=== PATIENT | male | born 1975 | race American Indian/Alaskan Native ===

== ENCOUNTER 2017-06-18 18:32 | Emergency (ER) | payer OTHER ==
[2017-06-18 19:00] VITALS: BP 140/88
[2017-06-18] MEDS ORDERED: Insulin Regular, Human 100 Units/ML 3 ML Vial SUBCUT ONE (19:03)
--- NOTE | 2017-06-18 19:06 | EDM.PDOC ---
ED HPI GENERAL MEDICAL PROBLEM - General Chief Complaint: General Stated Complaint: HIGH BS [id number] Time Seen by Provider: 06/18/17 19:03 Source of Information: Reports: Patient History Limitations: Reports: No Limitations - History of Present Illness INITIAL COMMENTS - FREE TEXT/NARRATIVE: was told @ fitness center BS 604 but BS here is 384. no c/o feels fine. hadn't taken tonight's dose metformin since is here. - Related Data Allergies Allergy/AdvReac Type Severity Reaction Status Date / Time Penicillins Allergy Hives Verified 09/27/15 05:11 Home Meds: Home Meds Aspirin [Leelee Chewable] 81 mg PO DAILY 06/28/14 [History] Calcium Carbonate [Calcium] 500 mg PO DAILY 06/28/14 [History] Lisinopril 10 mg PO DAILY 06/28/14 [History] [place]aho-3 Fatty Acids [Fish Oil] 500 mg PO DAILY 06/28/14 [History] atorvaSTATin Calcium [Atorvastatin Calcium] 10 mg PO DAILY 06/28/14 [History] glipiZIDE [Glipizide ER] 10 mg PO BID 06/28/14 [History] metFORMIN [Glucophage] 1,000 mg PO BIDM 06/28/14 [History] Past Medical History Other HEENT History: Stated wearing corrective lenses Cardiovascular History: Reports: High Cholesterol, Hypertension Other Musculoskeletal History: Left thumb cut-off Endocrine/Metabolic History: Reports: Diabetes, Type II - Past Surgical History Other GI Surgeries/Procedures: Patient denies GERD even it was stated before that he had GERD. Other Musculoskeletal Surgeries/Procedures:: Retouch left thumb. Social & Family History - Tobacco Use Smoking Status *Q: Never Smoker Years of Tobacco use: 18 Packs/Tins Daily: 1 Used Tobacco, but Quit: Yes Month Tobacco Last Used: 06/2012 Second Hand Smoke Exposure: No - Caffeine Use Caffeine Use: Reports: Coffee, Soda, Tea - Alcohol Use Days Per Week of Alcohol Use: 0 Number of Drinks Per Day: 0 Total Drinks Per Week: 0 - Recreational Drug Use Recreational Drug Use: Yes ED ROS GENERAL - Review of Systems Review Of Systems: ROS reveals no pertinent complaints other than HPI. ED EXAM, GENERAL - Physical Exam Exam: See Below Exam Limited By: No Limitations General Appearance: Alert, WD/WN, No Apparent Distress Ears: Hearing Grossly Normal Throat/Mouth: Normal Voice, No Airway Compromise Head: Atraumatic Neck: Non-Tender, Full Range of Motion Respiratory/Chest: No Respiratory Distress Cardiovascular: Regular Rate, Rhythm GI/Abdominal: Soft, Non-Tender Neurological: Alert, Oriented, Normal Cognition, Normal Gait, No Motor/Sensory Deficits Psychiatric: Normal Affect, Normal Mood Skin Exam: Warm, Dry, Normal Color Lymphatic: No Adenopathy Course - Vital Signs Last Recorded V/S: Last Vital Signs Temp 35.9 C 06/18/17 18:59 Pulse 95 06/18/17 18:59 Resp 20 06/18/17 18:59 BP 140/88 06/18/17 18:59 Pulse Ox 99 06/18/17 18:59 - Orders/Labs/Meds Labs: Laboratory Tests 06/18/17 Range/Units 18:53 POC Glucose 381 H (70-105) mg/dl Meds: Medications Discontinued Medications Generic Name Dose Route Start Last Admin Trade Name Camronq PRN Reason Stop Dose Admin Insulin Human Regular 10 unit 06/18/17 19:03 06/18/17 19:06 Humulin R SUBCUT 06/18/17 19:04 10 units ONETIME ONE Administration Protocol Departure - Departure Time of Disposition: 19:17 Disposition: Home, Self-Care 01 Condition: Good Clinical Impression: Hyperglycemia - Discharge Information Instructions: Hyperglycemia, [id number] Forms: ED Department Discharge Additional Instructions: 1) continue home meds 2) follow up at clinic for possible med dose re-adjustment 3) recheck as needed
== END 2017-06-18 19:17 | disposition home or self-care (01) ==
LOC: DL.ED 18:32
DX: E11.65 Type 2 diabetes mellitus with hyperglycemia (principal); I10 Essential (primary) hypertension; E78.00 Pure hypercholesterolemia, unspecified; Z79.82 Long term (current) use of aspirin; Z79.84 Long term (current) use of oral hypoglycemic drugs; Z79.899 Other long term (current) drug therapy; Z88.0 Allergy status to penicillin
CPT/HCPCS: 82962; 96372; 99284

== ENCOUNTER 2018-01-12 18:40 | Emergency (ER) | payer OTHER ==
[2018-01-12 18:47] VITALS: BP 134/85
--- NOTE | 2018-01-12 22:01 | EDM.PDOC ---
ED HPI GENERAL MEDICAL PROBLEM - General Chief Complaint: Respiratory Problem Stated Complaint: cold [id number] Time Seen by Provider: 01/12/18 21:56 Source of Information: Reports: Patient History Limitations: Reports: No Limitations - History of Present Illness INITIAL COMMENTS - FREE TEXT/NARRATIVE: Cold and cough for one week. right ear started hurting today. Coughing up yellow/green phlegm. States seemed like cold and cough better for couple of days but now worse. non smoker Right Ear Pain Score (Numeric/FACES): 3 - Related Data Allergies Allergy/AdvReac Type Severity Reaction Status Date / Time Penicillins Allergy Hives Verified 01/12/18 18:47 Home Meds: Home Meds Aspirin [Leelee Chewable] 81 mg PO DAILY 06/28/14 [History] Lisinopril 10 mg PO DAILY 06/28/14 [History] atorvaSTATin Calcium [Atorvastatin Calcium] 10 mg PO DAILY 06/28/14 [History] glipiZIDE [Glipizide ER] 10 mg PO BID 06/28/14 [History] metFORMIN [Glucophage] 1,000 mg PO BIDM 06/28/14 [History] Past Medical History Other HEENT History: Stated wearing corrective lenses Cardiovascular History: Reports: High Cholesterol, Hypertension Other Musculoskeletal History: Left thumb cut-off Endocrine/Metabolic History: Reports: Diabetes, Type II - Past Surgical History Other GI Surgeries/Procedures: Patient denies GERD even it was stated before that he had GERD. Other Musculoskeletal Surgeries/Procedures:: Retouch left thumb. Social & Family History - Tobacco Use Smoking Status *Q: Never Smoker Years of Tobacco use: 18 Packs/Tins Daily: 1 Used Tobacco, but Quit: Yes Month Tobacco Last Used: 06/2012 Second Hand Smoke Exposure: No - Caffeine Use Caffeine Use: Reports: Coffee, Soda, Tea - Alcohol Use Days Per Week of Alcohol Use: 0 Number of Drinks Per Day: 0 Total Drinks Per Week: 0 - Recreational Drug Use Recreational Drug Use: No ED ROS GENERAL - Review of Systems Review Of Systems: See Below Constitutional: Reports: Fever HEENT: Reports: Ear Pain, Throat Pain Respiratory: Reports: Cough Musculoskeletal: Reports: No Symptoms Skin: Reports: No Symptoms ED EXAM, GENERAL - Physical Exam Exam: See Below Exam Limited By: No Limitations General Appearance: Alert, Mild Distress Eye Exam: Bilateral Eye: EOMI, PERRL Ears: Normal External Exam. No: Normal TMs Ear Exam: Right Ear: TM Red, Left Ear: TM Dull Nose: Nasal Deformity Throat/Mouth: Normal Inspection Head: Atraumatic, Normocephalic Neck: Normal Inspection Respiratory/Chest: No Respiratory Distress, Wheezing (right mid to base coarse) Cardiovascular: Normal Peripheral Pulses, Regular Rate, Rhythm GI/Abdominal: Normal Bowel Sounds Neurological: Alert, Oriented, Normal Cognition Psychiatric: Normal Affect Skin Exam: Warm, Dry, Intact, Normal Color Course - Vital Signs Last Recorded V/S: Last Vital Signs Temp 96.6 F 01/12/18 18:43 Pulse 110 H 01/12/18 18:43 Resp 18 01/12/18 18:43 BP 134/85 01/12/18 18:43 Pulse Ox 97 01/12/18 18:43 Departure - Departure Time of Disposition: 22:02 Disposition: Home, Self-Care 01 Condition: Good Clinical Impression: Bronchitis Otitis Qualifiers: Laterality: right Qualified Code(s): H66.91 - Otitis media, unspecified, right ear - Discharge Information Instructions: Upper Respiratory Infection, Adult, [id number], Otitis Media, Adult Additional Instructions: Azithromycin 250mg one daily x 4 days tylenol or ibuprofen for fever or discomfort increase fluids humidification follow up if symptoms worsen
[2018-01-12] MEDS ORDERED: Azithromycin 250 MG Tab PO ONE (22:04)
== END 2018-01-12 22:11 | disposition home or self-care (01) ==
LOC: DL.ED 18:40
DX: J40 Bronchitis, not specified as acute or chronic (principal); H66.91 Otitis media, unspecified, right ear; I10 Essential (primary) hypertension; E78.00 Pure hypercholesterolemia, unspecified; E11.9 Type 2 diabetes mellitus without complications; Z87.891 Personal history of nicotine dependence; Z79.82 Long term (current) use of aspirin; Z79.84 Long term (current) use of oral hypoglycemic drugs; Z88.0 Allergy status to penicillin
CPT/HCPCS: 99283; A9270

== ENCOUNTER 2018-06-15 16:17 | Inpatient (IN) | payer OTHER ==
[2018-06-15] MEDS ORDERED: Sodium Chloride 0.9% 1,000 ML IV ONE (18:06)
[2018-06-15] MEDS ORDERED: diphenhydrAMINE 50 MG/ML SDV IVPUSH ONE (18:06)
[2018-06-15] MEDS ORDERED: Vancomycin 1.5 GM in Sodium Chloride 0.9% 500 ML IV ONE (18:06)
[2018-06-15] MEDS: Sodium Chloride 0.9% 10 ML Syringe FLUSH PRN (18:07)
[2018-06-15 18:32] LABS: ANION GAP 12.7; CHLORIDE,CL 97 mmol/L (101-111); SODIUM,NA 131 mmol/L (135-145)
[2018-06-15] MEDS ORDERED: Acetaminophen 325 MG Tab PO ONE (18:53)
[2018-06-15] MEDS ORDERED: Insulin Regular, Human 100 Units/ML 3 ML Vial SUBCUT ONE (18:53)
--- NOTE | 2018-06-15 19:09 | EDM.PDOC ---
Scribed by Mandy Alford 06/15/[id number] for Bebo Reed MD ED HPI GENERAL MEDICAL PROBLEM - General Chief Complaint: Wound Recheck Stated Complaint: FOOT PAIN [id number] Time Seen by Provider: 06/15/18 17:50 Source of Information: Reports: Patient, RN, RN Notes Reviewed History Limitations: Reports: No Limitations - History of Present Illness INITIAL COMMENTS - FREE TEXT/NARRATIVE: Patient presents to ER with complaint of painful red left 2nd toe. Yesterday was working for the [employer] and thinks his toe was rubbing in his boot. Because he has diabetes with peripheral neuropathy he did not feel it and developed an open sore. Today when he awoke he noticed that the toe was painful because he doesn't usually feel the pain. Over the past several hours the pain has spread and developed redness to the distal lower leg. He complains of fever and chills. Also feels his heart rate is fast. Onset Date: 06/14/18 Duration: Getting Worse Location: Reports: Lower Extremity, Left Quality: Reports: Ache Severity: Severe Improves with: Reports: None Worsens with: Reports: None Associated Symptoms: Reports: No Other Symptoms Left 2-Long toe Pain Score (Numeric/FACES): 6 - Related Data Allergies Allergy/AdvReac Type Severity Reaction Status Date / Time Penicillins Allergy Hives Verified 06/15/18 17:53 Home Meds: Home Meds Aspirin [Leelee Chewable] 81 mg PO DAILY 06/28/14 [History] Lisinopril 10 mg PO DAILY 06/28/14 [History] atorvaSTATin Calcium [Atorvastatin Calcium] 10 mg PO DAILY 06/28/14 [History] glipiZIDE [Glipizide ER] 10 mg PO BID 06/28/14 [History] metFORMIN [Glucophage] 1,000 mg PO BIDM 06/28/14 [History] Past Medical History Other HEENT History: Stated wearing corrective lenses Cardiovascular History: Reports: High Cholesterol, Hypertension Other Musculoskeletal History: Left thumb cut-off Endocrine/Metabolic History: Reports: Diabetes, Type II - Past Surgical History Other GI Surgeries/Procedures: Patient denies GERD even it was stated before that he had GERD. Other Musculoskeletal Surgeries/Procedures:: Retouch left thumb. Social & Family History - Family History Family Medical History: Noncontributory - Tobacco Use Smoking Status *Q: Current Every Day Smoker Tobacco Use Within Last Twelve Months: Cigarettes Years of Tobacco use: 5 Packs/Tins Daily: 0.1 Second Hand Smoke Exposure: Yes - Caffeine Use Caffeine Use: Reports: Coffee, Soda, Tea - Recreational Drug Use Recreational Drug Use: No ED ROS GENERAL - Review of Systems Review Of Systems: ROS reveals no pertinent complaints other than HPI. ED EXAM, SKIN/RASH Exam: See Below Exam Limited By: No Limitations General Appearance: Alert, No Apparent Distress, Other (uncomfortable but nontoxic appearing. ) Eye Exam: Bilateral Eye: Normal Inspection Throat/Mouth: Normal Lips, Normal Voice, No Airway Compromise, Other (dry oral membranes) Head: Atraumatic, Normocephalic Neck: Normal Inspection, Supple, Non-Tender, Full Range of Motion Respiratory/Chest: No Respiratory Distress, Lungs Clear, Normal Breath Sounds, No Accessory Muscle Use, Chest Non-Tender Cardiovascular: Normal Peripheral Pulses, Regular Rate, Rhythm, Tachycardia Back Exam: Normal Inspection Extremities: Normal Range of Motion, No Pedal Edema, Normal Capillary Refill, Increased Warmth (left 2nd toe dorsum of the left foot to the distal lower leg with erythema and tenderness, dorsum of the left 2nd toe has a 0.5cm unstageable pressure or friction ulcer with no signfiicant drainage or discharge. ) Neurological: Alert, Oriented, CN II-XII Intact, Normal Cognition, No Motor/ Sensory Deficits Psychiatric: Normal Affect, Normal Mood Course - Vital Signs Last Recorded V/S: Last Vital Signs Temp 37.9 C 06/15/18 17:49 Pulse 123 H 06/15/18 17:49 Resp 18 06/15/18 17:49 BP 154/112 H 06/15/18 17:49 Pulse Ox 100 06/15/18 17:49 - Orders/Labs/Meds Orders: Active Orders 24 hr Category Date Time Status Peripheral IV Care [RC] . DIRECTED Care 06/15/18 17:58 Active Toes Second Digit Lt T1 [CR] Urgent Exams 06/15/18 18:54 Taken CULTURE BLOOD [BC] Stat Lab 06/15/18 18:05 Received CULTURE BLOOD [BC] Stat Lab 06/15/18 18:15 Received KETONES,BLOOD [CHEM] Stat Lab 06/15/18 19:00 Ordered Sodium Chloride 0.9% [Saline Flush] Med 06/15/18 17:58 Active 10 ml FLUSH ASDIRECTED PRN Vancomycin 1.5 gm Med 06/15/18 18:06 Active Sodium Chloride 0.9% [Normal Saline] 500 ml IV ONETIME Blood Culture x2 Reflex Set [OM.PC] Stat Oth 06/15/18 17:58 Ordered Peripheral IV Insertion Adult [OM.PC] Routine Oth 06/15/18 17:58 Ordered Medication Orders Vancomycin HCl 1.5 gm/ Sodium (Chloride) 500 mls @ 334 mls/hr IV ONETIME ONE Stop: 06/15/18 19:35 Last Admin: 06/15/18 18:23 Dose: 334 mls/hr Sodium Chloride (Saline Flush) 10 ml FLUSH ASDIRECTED PRN PRN Reason: Keep Vein Open Last Admin: 06/15/18 18:07 Dose: 10 ml Labs: Laboratory Tests 06/15/18 06/15/18 06/15/18 Range/Units 18:05 18:05 18:05 WBC 13.6 H (5.0-10.0) 10^3/uL RBC 5.23 (4.6-6.2) 10^6/uL Hgb 15.1 D (14.0-18.0) g/dL Hct 43.6 (40.0-54.0) % MCV 83.4 D (80-100) fL MCH 28.9 (27.0-34.0) pg MCHC 34.6 (33.0-35.0) g/dL Plt Count 199 (150-450) 10^3/uL Neut % (Auto) 86.2 H (42.2-75.2) % Lymph % (Auto) 6.9 L (20.5-50.1) % [place] % (Auto) 6.4 (2-8) % Eos % (Auto) 0.4 L (1.0-3.0) % Baso % (Auto) 0.1 (0.0-1.0) % Sodium 131 L (135-145) mmol/L Potassium 3.7 (3.6-5.0) mmol/L Chloride 97 L (101-111) mmol/L Carbon Dioxide 25.0 (21.0-31.0) mmol/L Anion Gap 12.7 BUN 8 (7-18) mg/dL Creatinine 0.7 (0.6-1.3) mg/dL Est Cr Clr Drug Dosing 150.89 mL/min Estimated GFR (MDRD) > 60 BUN/Creatinine Ratio 11.42 Glucose 490 H* (74-105) mg/dL Lactic Acid 2.7 H (0.5-2.2) mmol/L Calcium 9.0 (8.4-10.2) mg/dl Total Bilirubin 0.8 (0.2-1.0) mg/dL AST 24 (10-42) IU/L ALT 16 (10-60) IU/L Alkaline Phosphatase 96 (42-121) IU/L Total Protein 6.9 (6.7-8.2) g/dl Albumin 3.9 (3.2-5.5) g/dl Globulin 3.0 Albumin/Globulin Ratio 1.30 Meds: Medications Generic Name Dose Route Start Last Admin Trade Name Freq PRN Reason Stop Dose Admin Vancomycin HCl 1.5 gm/ Sodium 500 mls @ 334 mls/hr 06/15/18 18:06 06/15/18 18 :23 Chloride IV 06/15/18 19:35 334 mls/hr ONETIME ONE Administration Sodium Chloride 10 ml 06/15/18 17:58 06/15/18 18:07 Saline Flush FLUSH 10 ml ASDIRECTED PRN Administration Keep Vein Open Discontinued Medications Generic Name Dose Route Start Last Admin Trade Name Freq PRN Reason Stop Dose Admin Acetaminophen 650 mg 06/15/18 18:53 06/15/18 19:01 Tylenol PO 06/15/18 18:54 650 mg NOW ONE Administration Diphenhydramine HCl 25 mg 06/15/18 18:06 06/15/18 18:15 Benadryl IVPUSH 06/15/18 18:07 25 mg ONETIME ONE Administration Sodium Chloride 1,000 mls @ 999 mls/hr 06/15/18 18:06 06/15/18 18:15 Normal Saline IV 06/15/18 19:06 999 mls/hr .BOLUS ONE Administration Insulin Human Regular 10 unit 06/15/18 18:53 06/15/18 19:02 Humulin R SUBCUT 06/15/18 18:54 10 unit ONETIME ONE Administration Departure - Departure Time of Disposition: 19:03 ((Ad[address] Mcdowell)) Disposition: Admitted As Inpatient 66 Condition: Serious Clinical Impression: Cellulitis of left foot, Noncompliance with medications Hyperglycemia due to type 2 diabetes mellitus Qualifiers: Diabetes mellitus long-term insulin use: without long-term use Qualified Code(s ): E11.65 - Type 2 diabetes mellitus with hyperglycemia - Discharge Information Forms: ED Department Discharge - My Orders Last 24 Hours: My Active Orders 06/15/18 17:58 Peripheral IV Care [RC] . DIRECTED Sodium Chloride 0.9% [Saline Flush] 10 ml FLUSH ASDIRECTED PRN Blood Culture x2 Reflex Set [OM.PC] Stat Peripheral IV Insertion Adult [OM.PC] Routine 06/15/18 18:05 CULTURE BLOOD [BC] Stat 06/15/18 18:06 Vancomycin 1.5 gm Sodium Chloride 0.9% [Normal Saline] 500 ml IV ONETIME 06/15/18 18:15 CULTURE BLOOD [BC] Stat 06/15/18 18:54 Toes Second Digit Lt T1 [CR] Urgent 06/15/18 19:00 KETONES,BLOOD [CHEM] Stat - Assessment/Plan Last 24 Hours: My Active Orders 06/15/18 17:58 Peripheral IV Care [RC] . DIRECTED Sodium Chloride 0.9% [Saline Flush] 10 ml FLUSH ASDIRECTED PRN Blood Culture x2 Reflex Set [OM.PC] Stat Peripheral IV Insertion Adult [OM.PC] Routine 06/15/18 18:05 CULTURE BLOOD [BC] Stat 06/15/18 18:06 Vancomycin 1.5 gm Sodium Chloride 0.9% [Normal Saline] 500 ml IV ONETIME 06/15/18 18:15 CULTURE BLOOD [BC] Stat 06/15/18 18:54 Toes Second Digit Lt T1 [CR] Urgent 06/15/18 19:00 KETONES,BLOOD [CHEM] Stat I have read and agree with the documentation that has been completed regarding this visit. By signing this record, I attest that the documentation was completed in my physical presence and is an accurate record of the encounter.
[2018-06-15] MEDS ORDERED: Magnesium Hydroxide 400 MG/5 ML Susp 30 ML Cup PO PRN (20:34)
[2018-06-15] MEDS ORDERED: Acetaminophen 325 MG Tab PO PRN (20:34)
[2018-06-15] MEDS ORDERED: Morphine 2 MG/ML Syringe IVPUSH PRN (20:34)
[2018-06-15] MEDS ORDERED: Ondansetron 4 MG Tab.DIS PO PRN (20:34)
[2018-06-15] MEDS ORDERED: Temazepam 15 MG Cap PO PRN (20:34)
[2018-06-15] MEDS ORDERED: Docusate Sodium 100 MG Cap PO PRN (20:34)
[2018-06-15] MEDS ORDERED: 50% Dextrose in Water 50 ML Syringe IVPUSH PRN (20:38)
[2018-06-15] MEDS ORDERED: Sodium Chloride 0.9% 1,000 ML IV SCH (20:45)
[2018-06-15] MEDS ORDERED: Insulin Aspart 100 Units/ML 3 ML Pen SUBCUT SCH (21:00)
[2018-06-15] MEDS: glipiZIDE 5 MG Tab.ER PO SCH (21:38)
[2018-06-15] MEDS: Acetaminophen/oxyCODONE 325-5 MG Tab PO PRN (21:39)
[2018-06-15] MEDS: Meropenem 1 GM in Sodium Chloride 0.9% 100 ML IV SCH (21:57)
--- NOTE | 2018-06-16 02:09 | HP ---
CHIEF COMPLAINT: Increased swelling, pain, and redness to the left foot. HISTORY OF PRESENTING ILLNESS: Mr. Sukhdeep Frey is a 42-year-old male with medical history significant for hypertension, hyperlipidemia, type 2 diabetes mellitus, presented to the ER with complaints of having pain and swelling to the left foot. He first noticed it yesterday and since been very painful. He grades the pain as 5-6/10 in intensity, which gets aggravated on ambulation and relieved partially with pain medication, nonradiating type of pain, not associated with any nausea or vomiting. Denies any chest pain. No shortness of breath associated with the fever. He had a temperature after coming to the emergency room. Denied any history of similar complaints in the past. He works in maintenance for roads and unsure if he has boot scrub against his foot leading to this small ulcer, leading to cellulitis. The patient denied any history of similar complaints in the past. The patient denied any history of chest pains on exertion. No history of dyspnea on exertion. No history of orthopnea or paroxysmal nocturnal dyspnea. The patient denied any history of hematemesis, hematochezia, or melenic stools. Normal bowel and bladder habits otherwise. REVIEW OF SYSTEMS: A complete review of systems including skin, ear, nose, and throat, cardiovascular system, respiratory system, gastrointestinal system, genitourinary system, hematology, oncology, neurology, allergy, immunology, constitutional were all evaluated and were negative except for the above-said notes. PAST MEDICAL HISTORY: Significant for hypertension; hyperlipidemia; type 2 diabetes mellitus; history of liver disease, fatty liver disease, nonalcoholic; sinusitis; pharyngitis. PAST SURGICAL HISTORY: Significant for foot, toe bunionectomy on the left side and closed liver biopsy. FAMILY HISTORY: Significant for diabetes and heart disease in his father. ALLERGIES: Significant for penicillin and the patient does not know the exact reaction he has with penicillin. HOME MEDICATIONS: Include: 1. Lipitor 10 mg daily. 2. Lisinopril 10 mg daily. 3. Aspirin 81 mg daily. 4. Metformin 1000 mg twice a day. 5. Glipizide 10 mg twice a day. SOCIAL HISTORY: The patient has occasional alcohol intake and occasional tobacco smoking. PHYSICAL EXAMINATION: Vital Signs: Temperature of 100.2, pulse of 123, blood pressure of 154/112, respiratory rate of 18, saturating 100%. General Appearance: The patient is well oriented to time, place, and person. Follows commands spontaneously. Cardiovascular System: S1 and S2 heard with normal intensity. No gallops. Respiratory System: Clear to auscultation bilaterally. No wheeze. No crepitations. Abdomen: Soft. Bowel sounds positive. Nontender. No rigidity. Extremities: No edema to bilateral lower extremities. The patient is noted to have a small wound on the 2nd toe on the left foot. There is some erythema, swelling, and streaks of erythema noted on the left foot on the dorsal aspect. No active secretions noted. Tender to palpation. Peripheral pulses felt well. Neurology: No gross focal neurological deficits. LABORATORY DATA: Labs reviewed. WBC 13.6, hemoglobin 15.1, hematocrit 43.6, and platelet count 199. Sodium 131, potassium 3.7, chloride 97, bicarb 25, BUN 8, creatinine 0.7, glucose 490, lactic acid 2.7, total bilirubin 0.8, AST 24, and ALT 16. ASSESSMENT: 1. Cellulitis. 2. Possible sepsis. 3. Type 2 diabetes mellitus, uncontrolled. 4. Lactic acidosis. 5. Hypertension. 6. Hyperlipidemia. 7. History of alcohol intake and tobacco use. PLAN: 1. Cellulitis. The patient noted to have cellulitis involving the left foot and a small wound noted on the left 2nd toe. Given his diabetes, one has to be very careful. We will start him on IV antibiotics. The patient has allergy to penicillin, so we will put him on meropenem. We will keep him hydrated with IV fluids. We will follow the blood cultures. 2. Sepsis. The patient is noted to have tachycardia at the time of admission with heart rate of 123 and also noted to have a temperature of 100.2 with leukocytosis suggestive of possible sepsis. Elevated lactic acid level. We will follow serial lactic acids. We will keep him hydrated with IV fluids. Start him on IV antibiotics. Titrate the antibiotics once we have the culture reports available. 3. Type 2 diabetes mellitus, uncontrolled. The patient noted to have elevated blood sugars. The patient claims that he has not taken his pills for the last 1 week. He ran out of pills. The patient was educated about the importance of being compliance with medications. We will have him on insulin regimen. We will resume his glipizide and hold the metformin for now. Check his fingersticks with each meals. 4. Hyponatremia, mild in nature. Sodium of 131, could be pseudohyponatremia from hyperglycemia. Keep him hydrated with normal saline. Recheck a BMP in a.m. 5. DVT prophylaxis. We will have him on Lovenox for DVT prophylaxis. 6. Hypertension. The patient noted to be on lisinopril. Continue the same. 7. Code status. The patient wants to be full code. 8. Discussed with Dr. Reed, ER physician, regarding the plan of care. Reviewed the labs and medications. Reviewed the old charts. [facility] /[id number]
[2018-06-16] MEDS: Acetaminophen/oxyCODONE 325-5 MG Tab PO PRN ×5 (02:37→23:04)
[2018-06-16 05:10] LABS: ANION GAP 10.4; CHLORIDE,CL 103 mmol/L (101-111); SODIUM,NA 137 mmol/L (135-145)
[2018-06-16] MEDS: Meropenem 1 GM in Sodium Chloride 0.9% 100 ML IV SCH ×3 (05:50→22:19)
[2018-06-16] MEDS: atorvaSTATin 10 MG Tab PO SCH (08:30)
[2018-06-16] MEDS: Lisinopril 10 MG Tab PO SCH (08:30)
[2018-06-16] MEDS: Aspirin 81 MG Tab.Chew PO SCH (08:30)
[2018-06-16] MEDS: Insulin Aspart 100 Units/ML 3 ML Pen SUBCUT SCH ×4 (08:32→21:11)
[2018-06-16] MEDS: glipiZIDE 5 MG Tab.ER PO SCH ×2 (08:32→17:32)
[2018-06-16] MEDS: Enoxaparin 40 MG/0.4 ML Syringe SUBCUT SCH (08:33)
[2018-06-16] MEDS: Insulin Detemir 100 Units/ML 3 ML Pen SUBCUT SCH (12:14)
--- NOTE | 2018-06-16 12:31 | PN ---
DATE: 06/16/2018 SUBJECTIVE: Mr. Sukhdeep Frey is a 42-year-old male with medical history significant for hypertension, hyperlipidemia, type 2 diabetes mellitus, admitted with cellulitis involving the left foot. For the last 24 hours, the patient continues to have pain to the left foot. He grades the pain as 3-4/10 in intensity, aggravated on movement and palpation, relieved with pain medication, nonradiating type of pain, not associated with nausea and vomiting. Denies any chest pain. No shortness of breath. No abdominal pain. REVIEW OF SYSTEMS: Cardiovascular, respiratory, gastrointestinal, neurology, constitutional were all evaluated. PHYSICAL EXAMINATION: Vital Signs: Temperature of 99.8, T-max of 100.6, blood pressure 133/76, respiratory rate of 18, saturating at 99% on room air. General Appearance: The patient is well oriented to time, place, and person. Follows commands spontaneously. Cardiovascular System: S1 and S2 heard with normal intensity. No gallops. Respiratory System: Clear to auscultation bilaterally. No wheeze. No crepitations. Abdomen: Soft. Bowel sounds positive. Nontender. No rigidity. No guarding. No rebound tenderness. Extremities: Noted to have mild wound, dry, on the second toe on the left foot. Mild erythema and swelling noted. Neurologic: No gross focal neurological deficit. MEDICATIONS: Reviewed. Continue with: 1. Tylenol 650 every 4 hours as needed for pain and fever. 2. Aspirin 81 mg daily. 3. Lipitor 10 mg daily. 4. Lovenox 40 mg subcutaneous daily. 5. Glipizide 10 mg twice a day with meals. 6. NovoLog supplemental scale. 7. Levemir 15 units daily. 8. Lisinopril 10 mg daily. 9. Magnesium oxide 250 mg twice a day. 10.Morphine 2 mg IV q.2 hours as needed for pain. 11.Percocet 5/325 mg every 4 hours as needed for pain. 12.Potassium chloride 20 mEq twice a day. 13.Restoril 15 mg at bedtime as needed for sleep. LABORATORY DATA: Labs reviewed. WBC 12.8, hemoglobin 13.2, hematocrit 38.7, platelet count 163. Sodium 137, potassium 3.4, chloride 103, bicarb 27, BUN 8, creatinine 0.7, glucose 271. Magnesium 1.7. ASSESSMENT: 1. Cellulitis with toe ulcer. 2. Possible sepsis. 3. Type 2 diabetes mellitus, uncontrolled. 4. Lactic acidosis, resolved. 5. Hypertension. 6. Hyperlipidemia. PLAN: 1. Cellulitis with diabetic foot ulcer: The patient is noted have mild ulcer noted on the second toe which is getting dried. No active secretions noted at this time. X-ray of the foot did not show any evidence of deep-seated wound. We will continue with IV antibiotics. He is currently on meropenem; continue the same. 2. Sepsis: Await for blood cultures, and continued to have a low-grade temperature. We will continue with the meropenem. We will add vancomycin if the patient continues to have fevers. His erythema seems to be improving at this time. 3. Type 2 diabetes mellitus, uncontrolled: The patient noted to be on oral agents with glipizide twice a day. We will add Levemir for better control of the blood sugars while in the hospital. Have him on supplemental scale insulin as needed for additional coverage of his blood glucose. He usually takes metformin at home. We will hold the metformin for now. 4. Hypertension: The patient's blood pressure seems to be in acceptable range. Continue with lisinopril. 5. DVT prophylaxis: Continue with Lovenox for DVT prophylaxis. [facility] /[id number]
[2018-06-16] MEDS: Sodium Chloride 0.9% 10 ML Syringe FLUSH PRN ×3 (14:41→23:00)
[2018-06-16] MEDS: Potassium Chloride 10 MEQ Tab.ER PO SCH (17:32)
[2018-06-17] MEDS: Sodium Chloride 0.9% 10 ML Syringe FLUSH PRN ×3 (05:23→15:15)
[2018-06-17] MEDS: Meropenem 1 GM in Sodium Chloride 0.9% 100 ML IV SCH ×3 (05:27→23:25)
[2018-06-17 06:56] LABS: ANION GAP 9.6; CHLORIDE,CL 101 mmol/L (101-111); SODIUM,NA 135 mmol/L (135-145)
[2018-06-17] MEDS: atorvaSTATin 10 MG Tab PO SCH (08:33)
[2018-06-17] MEDS: glipiZIDE 5 MG Tab.ER PO SCH ×2 (08:33→17:52)
[2018-06-17] MEDS: Potassium Chloride 10 MEQ Tab.ER PO SCH ×2 (08:33→17:52)
[2018-06-17] MEDS: Aspirin 81 MG Tab.Chew PO SCH (08:33)
[2018-06-17] MEDS: Lisinopril 10 MG Tab PO SCH (08:33)
[2018-06-17] MEDS: Insulin Aspart 100 Units/ML 3 ML Pen SUBCUT SCH ×4 (08:34→21:47)
[2018-06-17] MEDS: Enoxaparin 40 MG/0.4 ML Syringe SUBCUT SCH (08:34)
[2018-06-17] MEDS: Acetaminophen/oxyCODONE 325-5 MG Tab PO PRN ×2 (08:38→17:53)
[2018-06-17] MEDS: Insulin Detemir 100 Units/ML 3 ML Pen SUBCUT SCH (08:43)
--- NOTE | 2018-06-17 14:56 | PN ---
DATE: 06/17/2018 SUBJECTIVE: Mr. Sukhdeep Frey is a 42-year-old male with a medical history significant for hypertension, hyperlipidemia, type 2 diabetes mellitus, admitted with cellulitis involving the left foot. For the last 24 hours, the patient continues to have swelling and pain, tender to the left foot second toe. He denies any chest pain. No shortness of breath. No abdominal pain. No nausea. No vomiting. No diarrhea. He denies any drainage from the wound on the second toe. REVIEW OF SYSTEMS: Cardiovascular, respiratory, gastrointestinal, neurology, constitutional were all evaluated. PHYSICAL EXAMINATION: Vital Signs: Temperature of 98.8, pulse of 83, blood pressure of 127/79, respiratory rate of 20, saturating at 99% on room air. General Appearance: The patient is well oriented to time, place, and person. Follows commands spontaneously. Cardiovascular System: S1 and S2 heard with normal intensity. No gallops. Respiratory System: Clear to auscultation bilaterally. No wheeze. No crepitations. Abdomen: Soft. Bowel sounds positive. Nontender. No rigidity. Extremities: Erythema, swelling, and tenderness to the left foot, mainly involving the second toe. Swelling noted around the second toe. No active secretions or drainage noted from the wound. Pulses felt. MEDICATIONS: Reviewed. Continue with: 1. Tylenol 650 every 4 hours as needed for pain. 2. Aspirin 81 mg daily. 3. Lipitor 10 mg daily. 4. Lovenox 40 mg subcutaneous daily. 5. Glipizide XL 10 mg twice a day. 6. NovoLog supplemental scale. 7. Levemir 25 units daily. 8. Lisinopril 10 mg daily. 9. Meropenem 1 g IV q.8 hourly. 10.Morphine 2 mg IV q.2 hours as needed for pain. 11.Percocet 5/325 mg every 4 hours as needed for pain. LABORATORY DATA: Labs reviewed. WBC 11.3, hemoglobin 13.1, hematocrit 38.8, platelet count 164. Sodium 135, potassium 3.6, chloride 101, bicarb 28, BUN 9, creatinine 0.6, glucose is in the range of 189 to 271. Phosphorus 2.8, magnesium 1.8, calcium 8.4. MICROBIOLOGY: Blood cultures remained negative so far. ASSESSMENT: 1. Cellulitis of the left foot with diabetic foot ulcer. 2. Sepsis, resolved. 3. Type 2 diabetes mellitus, uncontrolled. 4. Lactic acidosis, resolved. 5. Hypertension. 6. Hyperlipidemia. PLAN: 1. Cellulitis: The patient was noted to have a small ulcer on the second toe. This occurred from his shoe. The patient is noted to have cellulitis involving the second toe and also to the foot. The patient is currently on meropenem. We will add daptomycin for now to cover for MRSA and we will closely follow. The patient is allergic to penicillin. 2. Possible sepsis, seems to be resolved at this time: Continue with current IV antibiotic regimen. 3. Type 2 diabetes mellitus, uncontrolled: We added Levemir on this admission. We will increase the Levemir to 25 units daily. Continue with the glipizide. Continue to hold the metformin. Continue with supplemental scale insulin as needed for additional coverage of his blood glucose. 4. DVT prophylaxis: Continue with Lovenox for DVT prophylaxis. 5. The patient is encouraged to keep his left lower extremity elevated to decrease the swelling and pain. 6. Pain: The patient continues to have pain from cellulitis. Continue with the IV and oral pain medications. [facility] /[id number]
[2018-06-18] MEDS: Meropenem 1 GM in Sodium Chloride 0.9% 100 ML IV SCH ×3 (06:40→22:37)
[2018-06-18] MEDS: Potassium Chloride 10 MEQ Tab.ER PO SCH ×2 (08:30→17:16)
[2018-06-18] MEDS: glipiZIDE 5 MG Tab.ER PO SCH ×2 (08:31→17:15)
[2018-06-18] MEDS: Aspirin 81 MG Tab.Chew PO SCH (08:31)
[2018-06-18] MEDS: atorvaSTATin 10 MG Tab PO SCH (08:31)
[2018-06-18] MEDS: Insulin Aspart 100 Units/ML 3 ML Pen SUBCUT SCH ×4 (08:32→21:57)
[2018-06-18] MEDS: Enoxaparin 40 MG/0.4 ML Syringe SUBCUT SCH (08:32)
[2018-06-18] MEDS ORDERED: Insulin Detemir 100 Units/ML 3 ML Pen SUBCUT SCH (09:00)
[2018-06-18] MEDS ORDERED: Insulin Detemir 100 Units/ML 3 ML Pen SUBCUT ONE (10:28)
[2018-06-18] MEDS: Sodium Chloride 0.9% 10 ML Syringe FLUSH PRN (13:47)
--- NOTE | 2018-06-18 13:48 | PN ---
DATE: 06/18/2018 SUBJECTIVE: Mr. Sukhdeep Frey is a 42-year-old male with medical history significant for hypertension, hyperlipidemia, and type 2 diabetes mellitus, admitted with diabetic foot ulcer and also cellulitis. For the last 24 hours, the patient claims that the pain on the left foot seems to be improving. He denies any chest pain. No shortness of breath. No abdominal pain. No nausea. No vomiting. We added vancomycin yesterday in addition to meropenem. REVIEW OF SYSTEMS: Cardiovascular, respiratory, gastrointestinal, neurology, constitutional were all evaluated. PHYSICAL EXAMINATION: Vital Signs: Temperature of 98.7, pulse of 78, blood pressure 122/89, respiratory rate of 18, and saturating at 100%. General Appearance: The patient is well oriented to time, place, and person. Follows commands spontaneously. Cardiovascular System: S1 and S2 heard with normal intensity. No gallops. Respiratory System: Clear to auscultation bilaterally. No wheeze. No crepitations. Abdomen: Soft. Bowel sounds positive. Nontender. No rigidity. Extremities: No edema in bilateral lower extremities. The patient continues to have a small ulcer noted on the second toe on the left foot and some erythema and tenderness to palpation on the left foot on the dorsal aspect. Pulses felt well. Neurology: No gross focal neurological deficit. MEDICATIONS: Medications reviewed. Continue with: 1. Tylenol 650 every 4 hours as needed for pain. 2. Aspirin 81 mg daily. 3. Lipitor 10 mg daily. 4. Lovenox 40 mg subcutaneous daily. 5. Glipizide 10 mg twice a day. 6. NovoLog supplemental scale. 7. Levemir changed to 35 units subcutaneous daily. 8. Meropenem 1 g IV q.8 hourly. 9. Vancomycin, Pharmacy to dose. 10.Percocet 5/325 mg every 4 hours as needed for pain. 11.Potassium chloride 20 mEq twice a day. 12.Temazepam 15 mg at bedtime as needed for sleep. LABORATORY DATA: Labs reviewed. Blood sugar 181. We will order for a CBC and a BMP in the a.m. ASSESSMENT: 1. Diabetic foot ulcer with cellulitis involving the left foot. 2. Type 2 diabetes mellitus, uncontrolled. 3. Hypertension. 4. Hyperlipidemia. PLAN: 1. Cellulitis. The patient is noted to have cellulitis involving the left foot. He is noted to have small diabetic foot ulcer. This occurred after ambulation from his shoes. We will continue meropenem and vancomycin. We added vancomycin yesterday as wound was not healing very well on meropenem alone. Unsure if the patient has any underlying MRSA, but his blood cultures remained negative. We will closely follow. The patient is encouraged to keep his left foot elevated to improve the swelling and pain. 2. Sepsis, resolved. The patient was noted to have sepsis at the time of admission which is resolved at this time. Cultures remained negative. 3. Type 2 diabetes mellitus, uncontrolled. The patient continues to have elevated blood sugar. We added Levemir on this admission. We will increase the Levemir to 30 units, and continue with the glipizide twice a day. Check his fingersticks with each meals, have him on supplemental scale insulin as needed. His blood sugars are in the range of 200s. 4. Lactic acidosis, resolved. 5. Hypertension. Continue with lisinopril. 6. Hyperlipidemia. Continue with Lipitor. 7. DVT prophylaxis. Continue with Lovenox for now. [facility] /[id number]
[2018-06-19] MEDS: Meropenem 1 GM in Sodium Chloride 0.9% 100 ML IV SCH ×3 (06:33→22:23)
[2018-06-19 06:51] LABS: ANION GAP 11.7; CHLORIDE,CL 99 mmol/L (101-111); SODIUM,NA 137 mmol/L (135-145)
[2018-06-19] MEDS: Insulin Aspart 100 Units/ML 3 ML Pen SUBCUT SCH ×6 (08:39→21:51)
[2018-06-19] MEDS: Insulin Detemir 100 Units/ML 3 ML Pen SUBCUT SCH (08:39)
[2018-06-19] MEDS: atorvaSTATin 10 MG Tab PO SCH (08:40)
[2018-06-19] MEDS: Aspirin 81 MG Tab.Chew PO SCH (08:40)
[2018-06-19] MEDS: Enoxaparin 40 MG/0.4 ML Syringe SUBCUT SCH (08:40)
[2018-06-19] MEDS: glipiZIDE 5 MG Tab.ER PO SCH (08:40)
[2018-06-19] MEDS: Potassium Chloride 10 MEQ Tab.ER PO SCH ×2 (08:40→17:26)
--- NOTE | 2018-06-19 13:02 | PN ---
DATE: 06/19/2018 SUBJECTIVE: Mr. Sukhdeep Frey is a 42-year-old male with medical history significant for hypertension, hyperlipidemia, and type 2 diabetes mellitus, admitted with diabetic foot ulcer and cellulitis. For the last 24 hours, the patient's pain to the left foot seems to be improving. He denies any chest pain. No shortness of breath. No abdominal pain. No nausea. No vomiting. No diarrhea. REVIEW OF SYSTEMS: Cardiovascular, respiratory, gastrointestinal, neurology, constitutional were all evaluated. PHYSICAL EXAMINATION: Vital Signs: Temperature of 98.7, pulse of 77, blood pressure of 135/81, respiratory rate of 20, and saturating at 98% on room air. General Appearance: The patient is well oriented to time, place, and person. Follows commands spontaneously. Cardiovascular System: S1 and S2 heard with normal intensity. No gallops. Respiratory System: Clear to auscultation bilaterally. No wheeze. No crepitations. Abdomen: Soft. Bowel sounds positive. Nontender. No rigidity. Extremities: No edema in bilateral lower extremities. Mild erythema and swelling to the left second toe. No active secretions noted. Pulses felt well. Neurology: No gross focal neurological deficit. MEDICATIONS: Continue with: 1. Tylenol 650 every 4 hours as needed for pain and fever. 2. Aspirin 81 mg daily. 3. Lipitor 10 mg daily. 4. Lovenox 40 mg subcutaneous daily. 5. Glipizide XL 10 mg twice a day. 6. NovoLog supplemental scale. 7. Levemir 35 units daily. 8. Milk of magnesia 30 mL q.12h. 9. Meropenem 1 g IV q.8 hourly. 10.Zofran 4 mg oral as needed. 11.Potassium chloride 20 mEq twice a day. 12.Restoril 15 mg at bedtime. 13.Vancomycin; Pharmacy to dose. LABORATORY DATA: 1. WBC 6.8, hemoglobin 14.6, hematocrit 43.1, platelet count 228. 2. Sodium 137, potassium 3.7, chloride 99, bicarb 30, BUN 10, creatinine 0.6, glucose 162. ASSESSMENT: 1. Diabetic foot ulcer with cellulitis involving the left foot. 2. Type 2 diabetes mellitus, uncontrolled. 3. Hypertension. 4. Hyperlipidemia. PLAN: 1. Diabetic foot ulcer with cellulitis. The patient has noted a small wound on the second toe of the left foot. The patient continues to have mild erythema. He is continued on meropenem and vancomycin. We added vancomycin on Sunday. He would benefit from 5 days of IV antibiotics. So far, his cultures remained negative. The patient is encouraged to keep his left foot elevated. No active secretions or drainage is noted from the wound which is small. The patient will continue with wound cares. 2. Type 2 diabetes mellitus, uncontrolled. The patient noted to have a hemoglobin A1c of 12, consistent with uncontrolled diabetes. The patient is currently on Levemir. We will add NovoLog. The patient would benefit from insulin regimen to better control his blood sugars with underlying infectious process. 3. Possible sepsis, resolved. The patient remained stable. Blood cultures remained negative. 4. Hypertension. The patient was noted to be on lisinopril. We had to hold the lisinopril as we added the vancomycin. We will resume it once he is more stable. 5. Hyperlipidemia. Continue with Lipitor. 6. Hypokalemia. The patient was started on potassium chloride oral which seems to be improving. Recheck a basic metabolic panel in the a.m. [facility] /[id number]
[2018-06-19] MEDS: Sodium Chloride 0.9% 10 ML Syringe FLUSH PRN ×3 (20:05→22:59)
[2018-06-20] MEDS: Sodium Chloride 0.9% 10 ML Syringe FLUSH PRN ×3 (04:17→06:54)
[2018-06-20] MEDS: Meropenem 1 GM in Sodium Chloride 0.9% 100 ML IV SCH ×3 (06:08→23:14)
[2018-06-20] MEDS: Insulin Detemir 100 Units/ML 3 ML Pen SUBCUT SCH (09:23)
[2018-06-20] MEDS: Insulin Aspart 100 Units/ML 3 ML Pen SUBCUT SCH ×8 (09:25→23:14)
[2018-06-20] MEDS: Enoxaparin 40 MG/0.4 ML Syringe SUBCUT SCH (09:26)
[2018-06-20] MEDS: atorvaSTATin 10 MG Tab PO SCH (09:26)
[2018-06-20] MEDS: Aspirin 81 MG Tab.Chew PO SCH (09:26)
[2018-06-20] MEDS: Potassium Chloride 10 MEQ Tab.ER PO SCH ×2 (09:31→17:28)
[2018-06-21] MEDS: Meropenem 1 GM in Sodium Chloride 0.9% 100 ML IV SCH ×2 (07:01→14:50)
[2018-06-21] MEDS: Insulin Detemir 100 Units/ML 3 ML Pen SUBCUT SCH (08:35)
[2018-06-21] MEDS: Insulin Aspart 100 Units/ML 3 ML Pen SUBCUT SCH ×4 (08:35→12:06)
[2018-06-21] MEDS: atorvaSTATin 10 MG Tab PO SCH (08:39)
[2018-06-21] MEDS: Potassium Chloride 10 MEQ Tab.ER PO SCH (08:39)
[2018-06-21] MEDS: Enoxaparin 40 MG/0.4 ML Syringe SUBCUT SCH (08:40)
[2018-06-21 11:03] VITALS: BP 135/83
[2018-06-21] MEDS: Aspirin 81 MG Tab.Chew PO SCH (12:03)
[2018-06-21] MEDS: Sodium Chloride 0.9% 10 ML Syringe FLUSH PRN (13:14)
[2018-06-21] MEDS ORDERED: Glimepiride 2 MG Tab PO ONE (14:00)
== END 2018-06-21 15:45 | disposition home or self-care (01) | DRG 872 ==
LOC: DL.ED 16:17 → DL.MS 19:30 → UNDOADMIN 19:30 → DL.MS 20:34
PROVIDERS: ADMIT Internal Medicine; ATTEND Internal Medicine
DX: A41.9 Sepsis, unspecified organism (principal); L03.116 Cellulitis of left lower limb; E87.2 Acidosis; E87.1 Hypo-osmolality and hyponatremia; E11.621 Type 2 diabetes mellitus with foot ulcer; L97.529 Non-pressure chronic ulcer of other part of left foot with unspecified severity; E11.65 Type 2 diabetes mellitus with hyperglycemia; E11.42 Type 2 diabetes mellitus with diabetic polyneuropathy; I10 Essential (primary) hypertension; E78.5 Hyperlipidemia, unspecified; F17.210 Nicotine dependence, cigarettes, uncomplicated; K76.0 Fatty (change of) liver, not elsewhere classified; Z83.3 Family history of diabetes mellitus; Z82.49 Family history of ischemic heart disease and other diseases of the circulatory system; Z88.0 Allergy status to penicillin; Z79.84 Long term (current) use of oral hypoglycemic drugs; Z79.82 Long term (current) use of aspirin; Z79.899 Other long term (current) drug therapy; Z91.14 Patient's other noncompliance with medication regimen
CPT/HCPCS: 36415; 73660-T1; 80048; 80053; 80202; 82009; 82565; 82962; 83036; 83605; 83735; 84100; 85025; 85027; 87040; 96372; 96374; 99284; A9270-GY; J1200; J1650; J1815-GY; J2185; J3370; J7030; J7040; J7050

== ENCOUNTER 2019-04-06 04:20 | Emergency (ER) | payer BC, OTHER ==
--- NOTE | 2019-04-06 04:23 | EDM.PDOC ---
ED HPI GENERAL MEDICAL PROBLEM - General Stated Complaint: BAD COUGH [id number] Time Seen by Provider: 04/06/19 04:47 Source of Information: Reports: Patient, RN History Limitations: Reports: No Limitations - History of Present Illness INITIAL COMMENTS - FREE TEXT/NARRATIVE: ED with c/o cough since Sunday. Productive dark green phlegm. no known fever, but felt awful on Sunday. Sorethroat no ear pain. non smoker. no hx asthma. Appetite good, tolerating food and liquids. No family members ill. Diabetic, blood sugars staying usual around 114. - Related Data Allergies Allergy/AdvReac Type Severity Reaction Status Date / Time Penicillins Allergy Hives Verified 04/06/19 04:32 Home Meds: Home Meds Aspirin [Leelee Chewable Aspirin] 81 mg PO DAILY 06/28/14 [History] Lisinopril 10 mg PO DAILY 06/28/14 [History] atorvaSTATin Calcium [Atorvastatin Calcium] 10 mg PO DAILY 06/28/14 [History] Doxycycline [Vibramycin] 100 mg PO BID #28 cap 06/21/18 [Rx] Glimepiride 1 mg PO WITHBREAKFAST #30 tab 06/21/18 [Rx] metFORMIN [Glucophage XR] 500 mg PO BIDMEALS #60 tab.er 06/21/18 [Rx] Past Medical History Other HEENT History: Stated wearing corrective lenses Cardiovascular History: Reports: High Cholesterol, Hypertension Musculoskeletal History: Reports: Arthritis Other Musculoskeletal History: Left thumb cut-off. some arthritis in left thumb now Endocrine/Metabolic History: Reports: Diabetes, Type II - Infectious Disease History Infectious Disease History: Reports: Chicken Pox - Past Surgical History Other GI Surgeries/Procedures: Patient denies GERD even it was stated before that he had GERD. Musculoskeletal Surgical History: Reports: Arthroscopic Procedure, Other (See Below) Other Musculoskeletal Surgeries/Procedures:: Retouch left thumb., bunion removed to left foot Social & Family History - Family History Family Medical History: Noncontributory Oncologic: Reports: Brain, Lung Other Oncologic Family History: uncle - Caffeine Use Caffeine Use: Reports: Coffee, Soda ED ROS GENERAL - Review of Systems Review Of Systems: ROS reveals no pertinent complaints other than HPI. ED EXAM, GENERAL - Physical Exam Exam: See Below Exam Limited By: No Limitations General Appearance: Alert, No Apparent Distress Eye Exam: Bilateral Eye: EOMI Ears: Normal External Exam, Hearing Grossly Normal, Normal TMs Nose: Normal Inspection Throat/Mouth: Normal Inspection, Normal Oropharynx, Normal Voice Head: Atraumatic, Normocephalic Neck: Normal Inspection Respiratory/Chest: No Respiratory Distress, Lungs Clear, Decreased Breath Sounds. No: Crackles, Rales, Rhonchi, Wheezing Cardiovascular: Normal Peripheral Pulses, Regular Rate, Rhythm GI/Abdominal: Soft Extremities: Normal Range of Motion Neurological: Alert, Oriented, Normal Cognition Skin Exam: Warm, Dry, Intact, Normal Color Course - Vital Signs Last Recorded V/S: Last Vital Signs Temp 97.3 F 04/06/19 04:24 Pulse 105 H 04/06/19 04:24 Resp 15 04/06/19 04:24 BP 140/90 04/06/19 04:24 Pulse Ox 97 04/06/19 04:24 Departure - Departure Time of Disposition: 05:22 Disposition: Home, Self-Care 01 Condition: Good Clinical Impression: URI (upper respiratory infection) Qualifiers: URI type: unspecified viral URI Qualified Code(s): J06.9 - Acute upper respiratory infection, unspecified - Discharge Information *PRESCRIPTION DRUG MONITORING PROGRAM REVIEWED*: Not Applicable *COPY OF PRESCRIPTION DRUG MONITORING REPORT IN PATIENT RAJAT: Not Applicable Instructions: Upper Respiratory Infection, Adult, [id number] Additional Instructions: humidification increase fluid alternate tylenol and ibuprofen every 4 hours s needed for fever/ discomfort tesselon pearles 200mg every 8 hours as needed for cough robitussin every 4 hours as needed to loosen cough symptoms follow up if symptoms worsen
[2019-04-06] MEDS ORDERED: Albuterol/Ipratropium 3.0-0.5 MG/3 ML Neb Soln NEB ONE (04:56)
[2019-04-06] MEDS ORDERED: Benzonatate 100 MG Cap PO ONE (05:21)
[2019-04-06 05:41] VITALS: BP 155/86
== END 2019-04-06 05:35 | disposition home or self-care (01) ==
LOC: DL.ED 04:20
DX: J06.9 Acute upper respiratory infection, unspecified (principal); I10 Essential (primary) hypertension; E78.00 Pure hypercholesterolemia, unspecified; E11.9 Type 2 diabetes mellitus without complications; Z79.82 Long term (current) use of aspirin; Z79.84 Long term (current) use of oral hypoglycemic drugs; Z79.899 Other long term (current) drug therapy; Z88.0 Allergy status to penicillin
CPT/HCPCS: 99283; A9270; J7620-GY

== ENCOUNTER 2021-03-31 21:18 | Emergency (ER) | payer BC, OTHER ==
[2021-03-31 21:37] VITALS: BP 145/77; PULSE 101
[2021-03-31] MEDS ORDERED: Tetracaine HCl/PF 0.5% 4 ML Bottle EYERT ONE (22:48)
[2021-03-31] MEDS ORDERED: Fluorescein 1 MG Ophth Strip EYERT ONE (22:48)
--- NOTE | 2021-03-31 23:24 | EDM.PDOC ---
ED HPI GENERAL MEDICAL PROBLEM - General Chief Complaint: Eye Problems Stated Complaint: SOMETHING METAL IN RIGHT EYE Time Seen by Provider: 03/31/21 22:30 Source of Information: Reports: Patient, RN, RN Notes Reviewed History Limitations: Reports: No Limitations - History of Present Illness INITIAL COMMENTS - FREE TEXT/NARRATIVE: Sukhdeep is a 45 y/o male who presents to the ED via personal vehicle with complaints of irritation to right eye. The patient reports he was working on his truck approximately one hour prior to his arrival to this facility when he felt dust particles fall into his eye. He attempted to wash out the eye with water but continues to experience irritation. He denies history of injury or trauma to this eye. He has not utilized any medications for the symptoms. Right Eye Pain Score (Numeric/FACES): 3 - Related Data Allergies Allergy/AdvReac Type Severity Reaction Status Date / Time Penicillins Allergy Hives Verified 03/31/21 21:33 Home Meds: Home Meds Aspirin [Leelee Chewable Aspirin] 81 mg PO DAILY 06/28/14 [History] Lisinopril 10 mg PO DAILY 06/28/14 [History] atorvaSTATin Calcium [Atorvastatin Calcium] 10 mg PO DAILY 06/28/14 [History] Glimepiride 1 mg PO WITHBREAKFAST #30 tab 06/21/18 [Rx] metFORMIN [Glucophage XR] 500 mg PO BIDMEALS #60 tab.er 06/21/18 [Rx] Insulin Detemir [Levemir Flextouch] 15 units SUBCUT BEDTIME 07/15/19 [History] Past Medical History Other HEENT History: Stated wearing corrective lenses Cardiovascular History: Reports: High Cholesterol, Hypertension Respiratory History: Reports: None Gastrointestinal History: Reports: None Genitourinary History: Reports: None Musculoskeletal History: Reports: Arthritis Other Musculoskeletal History: Left thumb cut-off. some arthritis in left thumb now Neurological History: Reports: None Psychiatric History: Reports: None Endocrine/Metabolic History: Reports: Diabetes, Type II Hematologic History: Reports: None Immunologic History: Reports: None Oncologic (Cancer) History: Reports: None Dermatologic History: Reports: None - Infectious Disease History Infectious Disease History: Reports: Chicken Pox - Past Surgical History Head Surgeries/Procedures: Reports: None Other GI Surgeries/Procedures: Patient denies GERD even it was stated before that he had GERD. Musculoskeletal Surgical History: Reports: Arthroscopic Procedure, Other (See Below) Other Musculoskeletal Surgeries/Procedures:: Retouch left thumb., bunion removed to left foot Social & Family History - Family History Family Medical History: No Pertinent Family History Oncologic: Reports: Brain, Lung Other Oncologic Family History: uncle - Tobacco Use Tobacco Use Status *Q: Never Tobacco User Second Hand Smoke Exposure: Yes - Caffeine Use Caffeine Use: Reports: Coffee, Energy Drinks, Soda, Tea, Other - Recreational Drug Use Recreational Drug Use: No - Living Situation & Occupation Living situation: Reports: with Family Occupation: Employed ED ROS GENERAL - Review of Systems Review Of Systems: Comprehensive ROS is negative, except as noted in HPI. ED EXAM GENERAL W FULL EYE - Physical Exam Exam: See Below Exam Limited By: No Limitations General Appearance: Alert, No Apparent Distress Eye Exam: Right Eye: Conjunctival Injection, Left Eye: Normal Inspection, Bilateral Eye: EOMI, PERRL, Other (No vision changes or foreign body appreciated) Visual Acuity (R) 20/: 25 Visual Acuity (L) 20/: 20 With Correction: Yes Eyelids: Right: Lid Everted for Exam, Bilateral: Normal Appearance Conjunctiva & Sclera: Right: Injected, Left: Normal Appearance Cornea Exam: Right: Corneal Abrasion, Examined with Flourescein Extraocular Movements: Bilateral: Intact Pupils: Normal Accommodation Pupillary Size: Bilateral: 3 mm Pupillary Reaction: Bilateral: Brisk Anterior Chamber: Bilateral: Normal Appearance Ears: Normal External Exam, Normal Canal, Normal TMs Throat/Mouth: Normal Inspection, Normal Oropharynx, Normal Voice, No Airway Compromise Respiratory/Chest: No Respiratory Distress, Lungs Clear, Normal Breath Sounds, No Accessory Muscle Use, Chest Non-Tender Cardiovascular: Normal Peripheral Pulses, Regular Rate, Rhythm, No Edema, No Gallop, No JVD, No Murmur, No Rub Neurological: Alert, Oriented, CN II-XII Intact, Normal Cognition, Normal Gait, No Motor/Sensory Deficits Psychiatric: Normal Affect, Normal Mood Skin Exam: Warm, Dry, Intact, Normal Color, No Rash. No: Ecchymosis, Erythema, Jaundice, Mottled, Pallor, Petechiae Course - Vital Signs Last Recorded V/S: Last Vital Signs Temp 98.9 F 03/31/21 21:36 Pulse 101 H 03/31/21 21:36 Resp 16 03/31/21 21:36 BP 145/77 H 03/31/21 21:36 Pulse Ox 98 03/31/21 21:36 - Orders/Labs/Meds Meds: Medications Discontinued Medications Generic Name Dose Route Start Last Admin Trade Name Colt PRIrene Reason Stop Dose Admin Fluorescein Sodium 1 mg 03/31/21 22:48 03/31/21 23:00 Fluorescein 1 Mg Ophth Strip EYERT 03/31/21 22:49 1 mg ONETIME ONE Administration Gentamicin Sulfate Confirm 03/31/21 23:29 Gentamicin 0.3% Ophth Soln 5 Ml Bottle Administered 03/31/21 23:30 Dose 5 ml .ROUTE .STK-MED ONE Tetracaine HCl 1 ml 03/31/21 22:48 03/31/21 22:59 Tetracaine Hcl/Pf 0.5% 4 Ml Bottle EYERT 03/31/21 22:49 1 drop ASDIRECTED ONE Administration - Re-Assessments/Exams Free Text/Narrative Re-Assessment/Exam: 04/01/21 Corneal abrasion appreciated via eye examination with fluorescein. Findings of examination reviewed with patient. Will treat with gentamicin 3% ophthalmic drops. Red flag signs and symptoms which would warrant reevaluation reviewed. Patient verbalized understanding and agreement with the plan of care. Departure - Departure Time of Disposition: 23:23 Disposition: Home, Self-Care 01 Condition: Good Clinical Impression: Corneal abrasion Qualifiers: Encounter type: initial encounter Laterality: right Qualified Code(s): S05.01XA - Injury of conjunctiva and corneal abrasion without foreign body, right eye, initial encounter - Discharge Information *PRESCRIPTION DRUG MONITORING PROGRAM REVIEWED*: Not Applicable *COPY OF PRESCRIPTION DRUG MONITORING REPORT IN PATIENT RAJAT: Not Applicable Instructions: Corneal Abrasion, [id number] Forms: ED Department Discharge Additional Instructions: Rx: gentamicin ophthalmic 3% 1.) Apply drops gentamicin every four hours for three days. 2.) Avoid use of contact lenses while cornea has an abrasion. 3.) You may use tetracaine one more time for eye discomfort, discard after. Sepsis Event Note (ED) - Evaluation Sepsis Screening Result: No Definite Risk
[2021-03-31] MEDS ORDERED: Gentamicin 0.3% Ophth Soln 5 ML Bottle ONE (23:29)
== END 2021-03-31 23:26 | disposition home or self-care (01) ==
LOC: DL.ED 21:18
DX: S05.01XA Injury of conjunctiva and corneal abrasion without foreign body, right eye, initial encounter (principal); E11.9 Type 2 diabetes mellitus without complications; I10 Essential (primary) hypertension; Z79.4 Long term (current) use of insulin; Z79.899 Other long term (current) drug therapy; Z88.0 Allergy status to penicillin; Z79.82 Long term (current) use of aspirin; W20.8XXA Other cause of strike by thrown, projected or falling object, initial encounter
CPT/HCPCS: 99283; A9270-GY

== ENCOUNTER 2023-03-23 22:59 | Inpatient (IN) | payer BC, OTHER ==
[2023-03-23] MEDS ORDERED: Sodium Chloride 0.9% 1,000 ML IV ONE (23:13)
[2023-03-23] MEDS ORDERED: Sodium Chloride 0.9% 10 ML Syringe FLUSH PRN (23:24)
[2023-03-23 23:31] LABS: BASOPHILS PERCENT AUTO 0.2 % (0.0-1.0); EOSINOPHILS PERCENT AUTO 0.4 % (1.0-3.0); HEMATOCRIT 39.2 % (40.0-54.0); HEMOGLOBIN 13.1 g/dL (14.0-18.0); LYMPHOCYTES PERCENT AUTO 8.2 % (20.5-50.1); MEAN CORPUSCULAR HEMOGLOBIN 28.3 pg (27.0-34.0); MEAN CORPUSCULAR HGB CONC 33.4 g/dL (33.0-35.0); MEAN CORPUSCULAR VOLUME 84.7 fL (80-100); MONOCYTES PERCENT AUTO 7.3 % (2-8); NEUTROPHILS PERCENT AUTO 83.9 % (42.2-75.2); PLATELET COUNT,PLT 244 10^3/uL (150-450); RED BLOOD CELL COUNT 4.63 10^6/uL (4.6-6.2); WHITE BLOOD CELL COUNT,WBC 19.2 10^3/uL (5.0-10.0)
[2023-03-23] MEDS: Sodium Chloride 0.9% 10 ML Syringe FLUSH PRN (23:35)
[2023-03-23 23:43] LABS: INR 0.9 (0.9-1.2); PROTHROMBIN TIME 8.9 SEC (9.0-12.0)
[2023-03-23] MEDS ORDERED: Piperacillin/Tazobactam 3.375 GM in Sodium Chloride 0.9% 100 ML IV ONE (23:48)
[2023-03-23 23:53] LABS: ALANINE AMINOTRANSFERASE,ALT 21 U/L (16-63); ALBUMIN 2.4 g/dL (3.4-5.0); ALKALINE PHOSPHATASE 157 U/L (46-116); ASPARTATE AMNIOTRANSFERASE,AST 14 U/L (15-37); BILIRUBIN TOTAL 0.6 mg/dL (0.2-1.0); BLOOD UREA NITROGEN,BUN 20 mg/dL (7-18); BUN/CREATININE RATIO 16.1 (No establ ref range); CALCIUM 9.1 mg/dL (8.5-10.1); CARBON DIOXIDE,CO2 28 mmol/L (21-32); CHLORIDE,CL 100 mmol/L (98-107); CREATININE 1.24 mg/dL (0.70-1.30); GLUCOSE RANDOM 395 mg/dL (70-99); PROTEIN TOTAL,TP 6.9 g/dL (6.4-8.2); SODIUM,NA 136 mmol/L (136-145)
[2023-03-24 00:01] LABS: A/G RATIO 0.53; C-REACTIVE PROTEIN > 36.0 mg/dL (0.0-0.9); ESTIMATED GFR 72 mL/min (>=60)
[2023-03-24 00:58] LABS: APPEARANCE,URINE CLEAR (CLEAR); BILIRUBIN,URINE NEGATIVE (NEGATIVE); COLOR,URINE YELLOW (YELLOW); GLUCOSE,URINE >=1000 (NEGATIVE); KETONES,URINE 15 (NEGATIVE); LEUKOCYTE ESTERASE,URINE NEGATIVE (NEGATIVE); NITRITE,URINE NEGATIVE (NEGATIVE); OCCULT BLOOD,URINE TRACE-LYSED (NEGATIVE); PROTEIN,URINE 100 (NEGATIVE)
[2023-03-24] MEDS ORDERED: Acetaminophen 325 MG Tab PO ONE (01:05)
[2023-03-24 01:07] LABS: AMORPHOUS SEDIMENT,URINE MODERATE /HPF (NOT SEEN); BACTERIA,URINE FEW /HPF (0-FEW/HPF); EPITHELIAL CELLS,URINE RARE /HPF (NOT SEEN); MUCUS,URINE FEW /LPF (NOT SEEN); WBC,URINE 0-5 /HPF (0-5/HPF)
[2023-03-24] MEDS ORDERED: Piperacillin/Tazobactam 3.375 GM in Sodium Chloride 0.9% 100 ML IV ONE (06:00)
[2023-03-24] MEDS ORDERED: Albuterol/Ipratropium 3.0-0.5 MG/3 ML Neb Soln NEB PRN (10:42)
[2023-03-24] MEDS ORDERED: Acetaminophen 325 MG Tab PO PRN (10:42)
[2023-03-24] MEDS ORDERED: Polyethylene Glycol 3350 Powder 17 GM Packet PO PRN (10:42)
[2023-03-24] MEDS ORDERED: Ondansetron 4 MG/2 ML SDV IVPUSH PRN (10:42)
[2023-03-24] MEDS ORDERED: Acetaminophen/HYDROcodone 325-5 MG Tab PO PRN (10:42)
[2023-03-24] MEDS ORDERED: HYDROmorphone 0.5 MG/0.5 ML Syringe IVPUSH PRN (10:42)
[2023-03-24] MEDS ORDERED: Magnesium Hydroxide 400 MG/5 ML Susp 30 ML Cup PO PRN (10:42)
[2023-03-24] MEDS ORDERED: Glucagon,Human Recombinant 1 MG Vial IM PRN (11:22)
[2023-03-24] MEDS ORDERED: 50% Dextrose in Water 50 ML Syringe IVPUSH PRN (11:22)
[2023-03-24] MEDS: Piperacillin/Tazobactam 3.375 GM in Sodium Chloride 0.9% 100 ML IV SCH ×2 (11:46→17:27)
[2023-03-24] MEDS: Insulin Lispro 100 Units/ML 3 ML Vial SUBCUT SCH ×2 (12:27→17:24)
[2023-03-24] MEDS ORDERED: Non-Formulary Medication 1 Each (Gabapentin 600 MG Tablet) PO PRN (19:37)
[2023-03-24] MEDS ORDERED: Naproxen 250 MG Tab PO PRN (19:37)
[2023-03-24] MEDS ORDERED: Insulin Glarg,Human.Rec.Analog 100 Unit/ML SUBCUT SCH (21:00)
[2023-03-24] MEDS: Saccharomyces Boulardii (Probiotic) 250 MG Cap PO SCH (21:20)
[2023-03-24] MEDS: Gabapentin 300 MG Cap PO SCH (21:20)
[2023-03-24] MEDS: Naproxen 250 MG Tab PO SCH (21:20)
[2023-03-24] MEDS: Famotidine 20 MG Tab PO SCH (21:20)
[2023-03-24] MEDS ORDERED: Benzocaine/Cetylpyridinium/Menthol Lozenge MUCMEM PRN (21:30)
[2023-03-24] MEDS: hydrALAZINE 20 MG/ML SDV IVPUSH PRN (21:46)
[2023-03-24] MEDS: Melatonin 3 MG Tab PO PRN (22:23)
[2023-03-25] MEDS: Piperacillin/Tazobactam 3.375 GM in Sodium Chloride 0.9% 100 ML IV SCH ×4 (00:32→17:29)
[2023-03-25 06:08] LABS: BASOPHILS PERCENT AUTO 0.3 % (0.0-1.0); EOSINOPHILS PERCENT AUTO 1.5 % (1.0-3.0); HEMATOCRIT 35.5 % (40.0-54.0); LYMPHOCYTES PERCENT AUTO 11.1 % (20.5-50.1); MEAN CORPUSCULAR HEMOGLOBIN 28.6 pg (27.0-34.0); MEAN CORPUSCULAR HGB CONC 33.8 g/dL (33.0-35.0); MEAN CORPUSCULAR VOLUME 84.5 fL (80-100); MONOCYTES PERCENT AUTO 8.4 % (2-8); NEUTROPHILS PERCENT AUTO 78.7 % (42.2-75.2); PLATELET COUNT,PLT 235 10^3/uL (150-450); WHITE BLOOD CELL COUNT,WBC 11.8 10^3/uL (5.0-10.0)
[2023-03-25 06:23] LABS: ALBUMIN 1.8 g/dL (3.4-5.0); ANION GAP 11.7 mEq/L (7-13); BILIRUBIN TOTAL 0.6 mg/dL (0.2-1.0); BUN/CREATININE RATIO 15.9 (No establ ref range); CALCIUM 8.2 mg/dL (8.5-10.1); CREATININE 0.88 mg/dL (0.70-1.30); EST CRCL DRUG DOSING (CG) 113.9 mL/min; MAGNESIUM 1.6 mg/dL (1.8-2.4); POTASSIUM,K 3.7 mmol/L (3.5-5.1)
[2023-03-25 06:26] LABS: A/G RATIO 0.43
[2023-03-25] MEDS ORDERED: Magnesium Sulfate/Water 2 GM in Premix Bag 1 BAG IV ONE (07:54)
[2023-03-25] MEDS ORDERED: Glimepiride 2 MG Tab PO SCH (08:00)
[2023-03-25] MEDS: Insulin Glarg,Human.Rec.Analog 100 Unit/ML SUBCUT SCH ×2 (08:54→20:55)
[2023-03-25] MEDS: Insulin Lispro 100 Units/ML 3 ML Vial SUBCUT SCH ×3 (08:54→17:25)
[2023-03-25] MEDS: Saccharomyces Boulardii (Probiotic) 250 MG Cap PO SCH ×2 (08:55→20:53)
[2023-03-25] MEDS: atorvaSTATin 10 MG Tab PO SCH (08:57)
[2023-03-25] MEDS: Gabapentin 300 MG Cap PO SCH ×2 (08:57→20:53)
[2023-03-25] MEDS: Lisinopril 10 MG Tab PO SCH (08:57)
[2023-03-25] MEDS: Famotidine 20 MG Tab PO SCH ×2 (08:57→20:53)
[2023-03-25] MEDS: Naproxen 250 MG Tab PO SCH ×2 (08:57→20:53)
[2023-03-25] MEDS: Aspirin 81 MG Tab.Chew PO SCH (08:58)
[2023-03-25] MEDS ORDERED: Non-Formulary Medication 1 Each (Gabapentin 600 MG) PO SCH (09:00)
[2023-03-25] MEDS: Sodium Chloride 0.9% 10 ML Syringe FLUSH PRN (12:36)
[2023-03-25] MEDS: Bacitracin/Neomycin/Polymyxin B Oint 28.4 GM Tube TOP PRN (20:53)
[2023-03-25] MEDS: Melatonin 3 MG Tab PO PRN (20:53)
[2023-03-25] MEDS: hydrALAZINE 20 MG/ML SDV IVPUSH PRN (20:56)
[2023-03-25] MEDS ORDERED: amLODIPine 5 MG Tab PO ONE (21:42)
[2023-03-25] MEDS ORDERED: cloNIDine 0.1 MG Tab PO ONE (21:42)
[2023-03-26] MEDS: Piperacillin/Tazobactam 3.375 GM in Sodium Chloride 0.9% 100 ML IV SCH ×4 (00:24→18:03)
[2023-03-26 06:39] LABS: BASOPHILS PERCENT AUTO 0.3 % (0.0-1.0); EOSINOPHILS PERCENT AUTO 2.4 % (1.0-3.0); HEMOGLOBIN 12.1 g/dL (14.0-18.0); LYMPHOCYTES PERCENT AUTO 15.4 % (20.5-50.1); MEAN CORPUSCULAR HEMOGLOBIN 28.4 pg (27.0-34.0); MEAN CORPUSCULAR HGB CONC 33.6 g/dL (33.0-35.0); MEAN CORPUSCULAR VOLUME 84.5 fL (80-100); MONOCYTES PERCENT AUTO 10.2 % (2-8); NEUTROPHILS PERCENT AUTO 71.7 % (42.2-75.2); PLATELET COUNT,PLT 250 10^3/uL (150-450); RED BLOOD CELL COUNT 4.26 10^6/uL (4.6-6.2); WHITE BLOOD CELL COUNT,WBC 9.2 10^3/uL (5.0-10.0)
[2023-03-26 06:59] LABS: ALBUMIN 1.8 g/dL (3.4-5.0); ANION GAP 10.9 mEq/L (7-13); BILIRUBIN TOTAL 0.4 mg/dL (0.2-1.0); BUN/CREATININE RATIO 15.2 (No establ ref range); CREATININE 0.92 mg/dL (0.70-1.30); EST CRCL DRUG DOSING (CG) 108.95 mL/min; MAGNESIUM 1.8 mg/dL (1.8-2.4); POTASSIUM,K 3.9 mmol/L (3.5-5.1); PROTEIN TOTAL,TP 6.1 g/dL (6.4-8.2)
[2023-03-26 07:01] LABS: A/G RATIO 0.42
[2023-03-26 07:09] LABS: C-REACTIVE PROTEIN 16.8 mg/dL (0.0-0.9)
[2023-03-26] MEDS: Hydrochlorothiazide 25 MG Tab PO SCH ×2 (07:52→13:07)
[2023-03-26] MEDS: Saccharomyces Boulardii (Probiotic) 250 MG Cap PO SCH ×2 (08:14→20:27)
[2023-03-26] MEDS: Famotidine 20 MG Tab PO SCH ×2 (08:14→20:28)
[2023-03-26] MEDS: Aspirin 81 MG Tab.Chew PO SCH (08:14)
[2023-03-26] MEDS: Gabapentin 300 MG Cap PO SCH ×2 (08:14→20:28)
[2023-03-26] MEDS: Glimepiride 2 MG Tab PO SCH ×2 (08:15→18:01)
[2023-03-26] MEDS: atorvaSTATin 10 MG Tab PO SCH (08:15)
[2023-03-26] MEDS: Lisinopril 10 MG Tab PO SCH (08:16)
[2023-03-26] MEDS: Naproxen 250 MG Tab PO SCH ×2 (08:16→20:28)
[2023-03-26] MEDS: Insulin Glarg,Human.Rec.Analog 100 Unit/ML SUBCUT SCH (08:19)
[2023-03-26] MEDS: Insulin Lispro 100 Units/ML 3 ML Vial SUBCUT SCH ×3 (08:21→17:19)
[2023-03-26] MEDS: Bacitracin/Neomycin/Polymyxin B Oint 28.4 GM Tube TOP PRN (11:18)
[2023-03-26] MEDS: VANCOmycin 1.5 GM/300 ML 1.5 GM in Premix Bag 1 BAG IV SCH (13:08)
[2023-03-26] MEDS: Sodium Chloride 0.9% 10 ML Syringe FLUSH PRN (18:02)
[2023-03-26] MEDS: metFORMIN 500 MG Tab PO SCH (18:02)
[2023-03-26] MEDS ORDERED: amLODIPine 5 MG Tab PO SCH (21:00)
[2023-03-27] MEDS: Insulin Glarg,Human.Rec.Analog 100 Unit/ML SUBCUT SCH
[2023-03-27] MEDS: Piperacillin/Tazobactam 3.375 GM in Sodium Chloride 0.9% 100 ML IV SCH ×4 (00:01→11:15)
[2023-03-27] MEDS: hydrALAZINE 20 MG/ML SDV IVPUSH PRN ×2 (00:10→06:04)
[2023-03-27] MEDS: VANCOmycin 1.5 GM/300 ML 1.5 GM in Premix Bag 1 BAG IV SCH ×2 (01:02→09:04)
[2023-03-27 06:13] LABS: HEMATOCRIT 37.6 % (40.0-54.0); HEMOGLOBIN 12.8 g/dL (14.0-18.0); MEAN CORPUSCULAR HEMOGLOBIN 28.4 pg (27.0-34.0); MEAN CORPUSCULAR VOLUME 83.6 fL (80-100); PLATELET COUNT,PLT 299 10^3/uL (150-450); WHITE BLOOD CELL COUNT,WBC 8.6 10^3/uL (5.0-10.0)
[2023-03-27 06:23] LABS: BASOPHILS PERCENT AUTO 0.5 % (0.0-1.0); EOSINOPHILS PERCENT AUTO 3.7 % (1.0-3.0); LYMPHOCYTES PERCENT AUTO 19.3 % (20.5-50.1); NEUTROPHILS PERCENT AUTO 65.5 % (42.2-75.2)
[2023-03-27 06:36] LABS: ANION GAP 12.7 mEq/L (7-13); BILIRUBIN TOTAL 0.3 mg/dL (0.2-1.0); BUN/CREATININE RATIO 11.6 (No establ ref range); C-REACTIVE PROTEIN 11.7 mg/dL (0.0-0.9); CALCIUM 8.8 mg/dL (8.5-10.1); CREATININE 0.95 mg/dL (0.70-1.30); EST CRCL DRUG DOSING (CG) 105.51 mL/min; MAGNESIUM 1.5 mg/dL (1.8-2.4); POTASSIUM,K 3.7 mmol/L (3.5-5.1); PROTEIN TOTAL,TP 6.4 g/dL (6.4-8.2)
[2023-03-27 06:38] LABS: A/G RATIO 0.45
[2023-03-27 07:05] LABS: EOSINOPHILS PERCENT MAN 7 % (1-3); LYMPHOCYTES PERCENT MAN 19 % (20-50); MONOCYTES PERCENT MAN 13 % (2-8); MYELOCYTE PERCENT MAN 1; SEG NEUTROPHILS PERCENT MAN 60 % (42-75)
[2023-03-27 08:23] VITALS: BP 122/75; PULSE 97
[2023-03-27] MEDS ORDERED: ALOGLIPTIN BENZOATE 25 MG PO SCH (09:00)
[2023-03-27] MEDS ORDERED: Cholecalciferol (Vitamin D3) 25 MCG Tab PO SCH (09:00)
[2023-03-27] MEDS ORDERED: Empagliflozin 25 MG Tab PO SCH (09:00)
[2023-03-27] MEDS: Lisinopril 10 MG Tab PO SCH (09:25)
[2023-03-27] MEDS: Saccharomyces Boulardii (Probiotic) 250 MG Cap PO SCH (09:25)
[2023-03-27] MEDS: Aspirin 81 MG Tab.Chew PO SCH (09:26)
[2023-03-27] MEDS: Glimepiride 2 MG Tab PO SCH (09:26)
[2023-03-27] MEDS: metFORMIN 500 MG Tab PO SCH (09:27)
[2023-03-27] MEDS: Gabapentin 300 MG Cap PO SCH (09:28)
[2023-03-27] MEDS: Hydrochlorothiazide 25 MG Tab PO SCH (09:28)
[2023-03-27] MEDS: atorvaSTATin 10 MG Tab PO SCH (09:28)
[2023-03-27] MEDS: Famotidine 20 MG Tab PO SCH (09:28)
[2023-03-27] MEDS: Naproxen 250 MG Tab PO SCH (09:29)
[2023-03-27] MEDS: Insulin Lispro 100 Units/ML 3 ML Vial SUBCUT SCH (09:33)
[2023-03-27] MEDS ORDERED: Magnesium Oxide 400 MG Tab PO ONE (10:45)
[2023-03-27] MEDS ORDERED: Insulin Glarg,Human.Rec.Analog 100 Unit/ML SUBCUT SCH (10:45)
[2023-03-27] MEDS: Bacitracin/Neomycin/Polymyxin B Oint 28.4 GM Tube TOP PRN (12:22)
== END 2023-03-27 12:35 | disposition home or self-care (01) | DRG 720 ==
LOC: DL.ED 22:59 → UNDOADMIN 03-24 06:22 → DL.MS 03-24 06:22 → UNDOADMIN 03-24 10:42 → DL.MS 03-24 10:42
PROVIDERS: ADMIT Internal Medicine; ATTEND Internal Medicine
DX: A41.9 Sepsis, unspecified organism (principal); E11.628 Type 2 diabetes mellitus with other skin complications; L03.116 Cellulitis of left lower limb; I10 Essential (primary) hypertension; E78.5 Hyperlipidemia, unspecified; G89.29 Other chronic pain; E66.9 Obesity, unspecified; E11.65 Type 2 diabetes mellitus with hyperglycemia; E11.42 Type 2 diabetes mellitus with diabetic polyneuropathy; E11.621 Type 2 diabetes mellitus with foot ulcer; E11.21 Type 2 diabetes mellitus with diabetic nephropathy; M19.90 Unspecified osteoarthritis, unspecified site; E83.42 Hypomagnesemia; E88.09 Other disorders of plasma-protein metabolism, not elsewhere classified; Z79.82 Long term (current) use of aspirin; Z79.899 Other long term (current) drug therapy; Z79.4 Long term (current) use of insulin; Z68.32 Body mass index [BMI] 32.0-32.9, adult; Z88.0 Allergy status to penicillin; Z98.890 Other specified postprocedural states
CPT/HCPCS: 36415; 73600-LT; 73620-LT; 80053; 80202; 81001; 82947; 83605; 83735; 85025; 85610; 86140; 87040; 93005; 93010; 96361; 96365; 96366; 96367; 99223; 99232; 99238; 99284; 99284-25; A9270-GY; J0360; J1815-GY; J2543; J3370; J3475; J3490; J7030; J7050

== ENCOUNTER 2024-06-08 17:42 | Emergency (ER) | payer BC, OTHER ==
[2024-06-08 18:29] LABS: BASOPHILS PERCENT AUTO 0.1 % (0.0-1.0); HEMOGLOBIN 13.1 g/dL (14.0-18.0); LYMPHOCYTES PERCENT AUTO 3.8 % (20.5-50.1); MEAN CORPUSCULAR HEMOGLOBIN 28.6 pg (27.0-34.0); MEAN CORPUSCULAR HGB CONC 32.8 g/dL (33.0-35.0); MEAN CORPUSCULAR VOLUME 87.3 fL (80-100); MONOCYTES PERCENT AUTO 6.1 % (2-8); PLATELET COUNT,PLT 199 10^3/uL (150-450); RED BLOOD CELL COUNT 4.58 10^6/uL (4.6-6.2); WHITE BLOOD CELL COUNT,WBC 21.3 10^3/uL (5.0-10.0)
[2024-06-08] MEDS: Acetaminophen 500 MG Tab PO ONE (18:33)
[2024-06-08] MEDS: Sodium Chloride 0.9% 1,000 ML IV ONE ×3 (18:33→20:44)
[2024-06-08] MEDS: Ondansetron 4 MG/2 ML SDV IVPUSH ONE (18:35)
[2024-06-08] MEDS: HYDROmorphone 1 MG/ML Syringe IVPUSH ONE (18:35)
[2024-06-08 18:49] LABS: ALANINE AMINOTRANSFERASE,ALT 18 U/L (16-63); ALBUMIN 2.7 g/dL (3.4-5.0); ALKALINE PHOSPHATASE 81 U/L (46-116); ANION GAP 13.3 mEq/L (7-13); ASPARTATE AMNIOTRANSFERASE,AST 19 U/L (15-37); BILIRUBIN TOTAL 0.8 mg/dL (0.2-1.0); BLOOD UREA NITROGEN,BUN 35 mg/dL (7-18); BUN/CREATININE RATIO 16.9 (No establ ref range); CALCIUM 8.9 mg/dL (8.5-10.1); CARBON DIOXIDE,CO2 26 mmol/L (21-32); CHLORIDE,CL 100 mmol/L (98-107); CREATININE 2.07 mg/dL (0.70-1.30); GLUCOSE RANDOM 151 mg/dL (70-99); POTASSIUM,K 4.3 mmol/L (3.5-5.1); PROTEIN TOTAL,TP 7.2 g/dL (6.4-8.2); SODIUM,NA 135 mmol/L (136-145)
[2024-06-08 18:59] LABS: LACTIC ACID 3.6 mmol/L (0.4-2.0)
[2024-06-08 19:03] LABS: ESTIMATED GFR 39 mL/min (>=60)
[2024-06-08] MEDS: Sodium Chloride 0.9% 10 ML Syringe FLUSH PRN (19:12)
[2024-06-08] MEDS: Vancomycin 2 GM in Sodium Chloride 0.9% 500 ML IV ONE (20:22)
[2024-06-08] MEDS: Piperacillin/Tazobactam 3.375 GM in Sodium Chloride 0.9% 100 ML IV ONE (20:45)
[2024-06-08 21:00] VITALS: BP 116/63; PULSE 108
== END 2024-06-08 21:30 ==
LOC: DL.ED 17:42
DX: A41.9 Sepsis, unspecified organism (principal); L03.116 Cellulitis of left lower limb; N17.9 Acute kidney failure, unspecified; I10 Essential (primary) hypertension; E78.00 Pure hypercholesterolemia, unspecified; E11.9 Type 2 diabetes mellitus without complications; Z88.0 Allergy status to penicillin; Z79.82 Long term (current) use of aspirin; Z79.84 Long term (current) use of oral hypoglycemic drugs; Z79.899 Other long term (current) drug therapy; Z86.16 Personal history of COVID-19
CPT/HCPCS: 36415; 73630-LT; 80053; 83605; 84145; 84550; 85025; 85651; 86140; 87040; 87077; 87186; 96361; 96365; 96368; 96375; 99285; 99285-25; A9270-GY; J1170; J2405; J2543; J3370; J3490; J7030; J7040